=== PATIENT | female | born 1960 | race Hispanic/Latino ===

== ENCOUNTER 2017-02-16 20:49 | Emergency (ER) | payer OTHER ==
[2017-02-16] MEDS ORDERED: predniSONE 20 MG TAB ONE (21:07)
== END 2017-02-16 21:12 | disposition home or self-care (01) ==
LOC: SCSER 20:49
DX: L50.0 Allergic urticaria (principal); I10 Essential (primary) hypertension
CPT/HCPCS: 99283; J7506

== ENCOUNTER 2017-08-14 15:16 | Outpatient (CLI) | payer OTHER | END 2017-08-14 15:17 | disposition home or self-care (01) | LOC: BICMAMMO 15:16 | PROVIDERS: ATTEND Family Medicine | DX: Z12.31 Encounter for screening mammogram for malignant neoplasm of breast (principal); Z80.3 Family history of malignant neoplasm of breast; Z85.038 Personal history of other malignant neoplasm of large intestine | CPT/HCPCS: 77063; 77067 ==

== ENCOUNTER 2017-12-23 15:43 | Day surgery (SDC) | payer OTHER ==
[~2017-12-23 15:43] MED LIST: Dexamethasone 20 MG/5 ML VIAL ONE; Glycopyrrolate 0.2 MG/ML 5 ML SYRINGE ONE; Labetalol HCl 100 MG/20 ML VIAL ONE; Lidocaine 1% PF 5 ML VIAL ONE; PHENYLEPHRINE-NS 100 MCG/ML 10 ML SYRINGE ONE; PROPOFOL 200 MG/20 ML VIAL ONE; Succinylcholine Chloride 20 MG/ML 10 ml SYRINGE FS ONE; ePHEDrine/0.9% NaCl/PF SYRINGE 50 mg/10 ml ONE
[2017-12-23 18:00] LABS: #Eosinphils 0.1 thou/uL (0.0-0.7); #Lymphocytes 1.6 thou/uL (1.20-3.40); #Monocytes 0.7 thou/uL (0.11-0.59); #Neutrophils 7.1 thou/uL (1.40-6.50); %Basophils 0.2 % (0.0-1.0); %Eosinophils 0.7 % (0.0-10.0); %Monocytes 6.9 % (0.0-10.0); %Neutrophils 75.3 % (42.0-75.0); Hemoglobin 14.3 g/dL (12.0-16.0); Mean Corpuscular HGB CONC 32.4 g/dL (32.0-36.0); Mean Corpuscular Hemoglobin 28.7 pg (27.0-31.0); Mean Corpuscular Volume 88.6 fL (78.0-98.0); Mean Platelet Volume 6.3 fL (7.4-10.4); Platelet Count 356 thou/uL (130-400); RBC Distribution Width 11.9 % (11.5-14.5); Red Blood Cell (RBC) Count 4.97 mill/uL (4.20-5.40); White Blood Cell (WBC) Count 9.4 thou/uL (4.8-10.8)
[2017-12-23 18:32] LABS: ALT (SGPT) 48 U/L (8-55); AST (SGOT) 29 U/L (5-34); Albumin 4.3 g/dL (3.5-5.0); Alkaline Phosphatase 146 U/L (40-150); Anion Gap 18 mmol/L (10-20); BUN (Urea Nitrogen) 10 mg/dL (9.8-20.1); Bilirubin, Total 0.6 mg/dL (0.2-1.2); Calc. Creatinine Clearance 0 mL/min (70-130); Carbon Dioxide 25 mmol/L (22-29); Chloride 99 mmol/L (98-107); Estimated GFR-MDRD 72; Globulin 4.4 g/dL (2.4-3.5); Glucose 128 mg/dL (70-105); Potassium 4.5 mmol/L (3.5-5.1); Protein, Total 8.7 g/dL (6.0-8.3); Sodium 137 mmol/L (136-145)
[2017-12-23] MEDS ORDERED: Dexamethasone 20 MG/5 ML VIAL ONE (22:32)
[2017-12-23] MEDS ORDERED: SUGAMMADEX SODIUM 200 MG/2 ML VIAL ONE (22:53)
[2017-12-23] MEDS ORDERED: SUGAMMADEX SODIUM 500 MG/5 ML VIAL ONE (22:53)
[2017-12-23] MEDS ORDERED: Promethazine HCl 25 MG/ML VIAL IM PRN (23:38)
[2017-12-23] MEDS ORDERED: Promethazine HCl 25 MG/ML VIAL SLOW IVP PRN (23:38)
[2017-12-23] MEDS ORDERED: Ondansetron HCl/PF 4 MG/2 ML Vial IVP PRN (23:38)
[2017-12-23] MEDS ORDERED: Fentanyl 100 MCG/2 ML VIAL ONE (23:41)
--- NOTE | 2017-12-24 01:39 | HP ---
DATE OF CONSULTATION: 12/23/2017 HISTORY OF PRESENT ILLNESS: The patient is a 57-year-old female who was in her normal state of health until this evening. When she was eating, she noticed acute sticking of the food and inabi lity to swallow any liquids or saliva after that time. She reports she had a similar episode in the past and has been dilated by Dr. Perry. Reviewing hospital records, there is no evidence of previou s dilatation, although in 09/2011, she underwent an upper and lower endoscopy for history of colon ca ncer and dysphagia. She has had a history of a lymphocytic esophagitis and she had ringed esophagus, but no dilatation was performed. She denies any weight loss from dysphagia. She has had a few epis odes over the years which usually last for a few minutes and then the food bolus will eventually pass . PAST MEDICAL HISTORY: Significant for lupus, hypertension, hypercholesterolemia. MEDICATIONS: Include hydrochlorothiazide and another oral antihypertensive. ALLERGIES: Include CIPRO and SULFA. SOCIAL HISTORY: She does not smoke or drink. FAMILY HISTORY: Negative for GI or liver disease. REVIEW OF SYSTEMS: Ten systems were reviewed and were negative except for above. PHYSICAL EXAMINATION: GENERAL: Shows a well-developed, well-nourished female in no acute distress. HEENT: Shows poor dentition. NECK: Supple. CHEST: Clear. CARDIOVASCULAR: Regular rate and rhythm. ABDOMEN: Soft, nontender, without organomegaly or masses. Bowel sounds are present and normoactive. RECTAL: Deferred. EXTREMITIES: Normal. NEUROLOGIC: Nonfocal. LABORATORY: Shows a normal CBC. Chemistry panel was normal except for glucose 128, total protein 87 . ASSESSMENT: 1. Esophageal foreign body. 2. History of lymphocytic esophagitis. 3. History of ringed esophagus. RECOMMENDATIONS: EGD foreign body extraction with possible dilatation.
--- NOTE | 2017-12-24 01:54 | OP ---
PREOPERATIVE DIAGNOSIS: Foreign body in esophagus. POSTOPERATIVE DIAGNOSIS: Foreign body in esophagus. PROCEDURE PERFORMED: 1. Laryngoscopy. 2. Rigid esophagoscopy. SURGEON: Eduardo Connor M.D. ANESTHESIA: General endotracheal anesthetic. ESTIMATED BLOOD LOSS: None. COMPLICATIONS: None. FINDINGS: Stricture of the upper esophagus. INDICATIONS FOR SURGERY: The patient is a 57-year-old woman who has a foreign body lodged in her upp er to mid esophagus. Dr. Rey Lewis was attempting EGD to remove this and found that she had a signi ficant stricture and during this procedure, there was a little mucosal flap that was elevated, so he asked me to come in during the procedure to see if I could perform a rigid esophagoscopy to assist. DESCRIPTION OF OPERATION: The patient was already intubated and anesthetized. I placed the patient in an extended neck position and then removed her teeth and a rigid esophagoscope with telescope was passed posterior to the cricoid into the upper esophagus. There was a swelling and it really just co uld not get a very good visualization and given the fact that she had already had mucosal injury, we opted to not proceed further. I removed the rigid esophagoscope and then passed a laryngoscope to vi sualize the hypopharynx and the larynx. There was some postcricoid edema, but the epiglottis and voc al cords appeared normal with the tube that was in place with a little ecchymosis in the posterior ph arynx consistent with repeated instrumentation. Upon my completion, Dr. Lewis passed his flexible sco pe again and the appearance of the esophagus was the same as it was prior to my procedure with just a small tear and the stricture. At this point, we terminated the procedure.
--- NOTE | 2017-12-24 02:02 | OP ---
PREOPERATIVE DIAGNOSIS: Esophageal foreign body. PROCEDURE IN DETAIL: After informed consent was obtained, patient was placed in the left lateral dec ubitus position. Anesthesia was administered per the Anesthesia Department. Forward-viewing endosco pe was inserted into esophagus under direct visualization with ease and passed to the upper esophagus at approximately 20 cm. Because of some bleeding, the scope was removed and patient was intubated. The scope was reinserted and large mucosal tear was noted beginning at the cricopharyngeus extending approximately 3 to 4 cm distally down the esophagus. In the distance beyond this tear, an esophagea l foreign body could be seen but could not be reached with the endoscope. Because of the large tear had a mucosal tear had a lip on it and the endoscope could not be passed beyond this lip. It was fel t that at this time may be possibly a rigid esophagoscope would be more able to pass this area. I wi ll defer that procedure note to the ears, nose, and throat doctor. After he was finished and unsucce ssful, we inserted the endoscope again and no changes were noted to the mucosal tear and flap and the foreign body. Patient was set up as much as possible and water was irrigated through the foreign pasquale dy, so it was not complete obstruction and the water passed. Therefore, she should be able to tolera te her own secretions. It was felt at this time that the best approach would be to transfer her to a facility that had pediatric endoscopes to reach this area without compromising or further damaging t he mucosal tear. ASSESSMENT: 1. Esophageal foreign body. 2. Severe stricturing of the upper esophagus. 3. Unsuccessful of foreign body removal. RECOMMENDATIONS: Transfer to higher level of care with pediatric endoscopes.
== END 2017-12-24 01:01 | disposition short-term general hospital (02) ==
LOC: ERS 15:43 → SDC/OP 21:10
PROVIDERS: ATTEND Internal Medicine Gastroenterology
PROC: 0DJ08ZZ Inspection of Upper Intestinal Tract, Via Natural or Artificial Opening Endoscopic (ICD-10-PCS; principal; 2017-12-24)
PROC: 0DC58ZZ Extirpation of Matter from Esophagus, Via Natural or Artificial Opening Endoscopic (ICD-10-PCS; principal; 2017-12-24)
PROC: 0CJS8ZZ Inspection of Larynx, Via Natural or Artificial Opening Endoscopic (ICD-10-PCS; principal; 2017-12-24)
DX: T18.128A Food in esophagus causing other injury, initial encounter (principal); K22.2 Esophageal obstruction; S11.21XA Laceration without foreign body of pharynx and cervical esophagus, initial encounter; I10 Essential (primary) hypertension; E78.00 Pure hypercholesterolemia, unspecified; M32.9 Systemic lupus erythematosus, unspecified; Z98.890 Other specified postprocedural states; Z79.899 Other long term (current) drug therapy; Z88.1 Allergy status to other antibiotic agents; Z88.2 Allergy status to sulfonamides
CPT/HCPCS: 36415; 80053; 85025; 96361; 96374; 96375; 96376; J1100; J1610; J2001; J2704; J3010

== ENCOUNTER 2018-01-20 10:11 | Day surgery (SDC) | payer OTHER ==
[2018-01-17 14:03] VITALS: BMI 25.5
[2018-01-20] MEDS ORDERED: Lidocaine 1% PF 5 ML VIAL ONE (13:48)
[2018-01-20] MEDS ORDERED: PROPOFOL 200 MG/20 ML VIAL ONE (13:48)
--- NOTE | 2018-01-20 14:16 | OP ---
PREOPERATIVE DIAGNOSES: 1. History of eosinophilic esophagitis. 2. History of recent bolus obstruction in the esophagus requiring foreign body removal. ANESTHESIA: TIVA. PROCEDURE: EGD with dilatation over a guidewire from 10 to 12 mm. Second look did show laceration o f the proximal esophageal mucosa with no signs of perforation. PROCEDURE IN DETAIL: After the patient was informed of fall risks, benefits, possible complications of endoscopy including perforation, reactions to medication and aspiration, informed consent was obta ined. She was brought to endoscopy suite where she was sedated in gradual fashion. Once she was com fortable, a bite block was placed in the incisor orifice. The endoscope was advanced into the esopha pearl. In the proximal esophagus, the scope rimmed out and would not pass into the proximal esophageal stricture. We gently advanced a guidewire through the scope with no resistance and the wire was at 60 cm the stomach. We gently dilated the esophagus and with a 10 mm Savary dilator over the wi re, there was minimal resistance with 11 and 12 mm after this again with minimal resistance. T he scope then was reinserted and a large laceration to be seen in the proximal esophagus where the sc ope would not pass previously. There was no evidence of perforation. The remainder of the esophagus appeared okay without any effective dilatation. The stomach and duodenum were normal in the second and third portions. Retroflexed views in the stomach were normal. The wires positioned in the stoma ch was confirmed endoscopically. The scope was removed. The patient tolerated the procedure well wi th no complications. RECOMMENDATIONS: 1. Daily PPI. 2. Carafate p.r.n. for pain. 3. Liquid diet for 24 hours. 4. Followup in the office in 6 weeks. 5. If the patient has fever, worsening pain, or severe dysphagia, she has been instructed to call me immediately.
== END 2018-01-20 13:10 | disposition home or self-care (01) ==
LOC: SDC 10:11
PROVIDERS: ATTEND Internal Medicine Gastroenterology
PROC: 0D758ZZ Dilation of Esophagus, Via Natural or Artificial Opening Endoscopic (ICD-10-PCS; principal; 2018-01-20)
DX: K22.2 Esophageal obstruction (principal); Z79.899 Other long term (current) drug therapy; Z88.1 Allergy status to other antibiotic agents; Z88.2 Allergy status to sulfonamides
CPT/HCPCS: J2001; J2704

== ENCOUNTER 2020-05-05 15:14 | Outpatient (CLI) | payer OTHER | END 2020-05-05 15:15 | disposition home or self-care (01) | LOC: BICRAD 15:14 | PROVIDERS: ATTEND Family Medicine | DX: M54.2 Cervicalgia (principal); R07.9 Chest pain, unspecified | CPT/HCPCS: 71046; 72040 ==

== ENCOUNTER 2021-06-23 14:28 | Inpatient (IN) | payer BC ==
[~2021-06-23 14:28] MED LIST changes: -Dexamethasone 20 MG/5 ML VIAL ONE; -Glycopyrrolate 0.2 MG/ML 5 ML SYRINGE ONE; +Iopamidol-370 76% 500 ML 1 ML ONE; -Labetalol HCl 100 MG/20 ML VIAL ONE; -Lidocaine 1% PF 5 ML VIAL ONE; -PHENYLEPHRINE-NS 100 MCG/ML 10 ML SYRINGE ONE; -PROPOFOL 200 MG/20 ML VIAL ONE; -Succinylcholine Chloride 20 MG/ML 10 ml SYRINGE FS ONE; -ePHEDrine/0.9% NaCl/PF SYRINGE 50 mg/10 ml ONE
[2021-06-23 16:21] LABS: #Lymphocytes 1.1 thou/uL (1.20-3.40); #Monocytes 0.9 thou/uL (0.11-0.59); #Neutrophils 9.1 thou/uL (1.40-6.50); %Basophils 0.1 % (0.0-1.0); %Eosinophils 0.1 % (0.0-10.0); %Lymphocytes 9.7 % (21.0-51.0); %Monocytes 8.1 % (0.0-10.0); %Neutrophils 81.9 % (42.0-75.0); Hemoglobin 10.7 g/dL (12.0-16.0); Mean Corpuscular HGB CONC 31.9 g/dL (32.0-36.0); Mean Corpuscular Volume 91.1 fL (78.0-98.0); Mean Platelet Volume 7.1 fL (7.4-10.4); Platelet Count 241 thou/uL (130-400); Red Blood Cell (RBC) Count 3.67 mill/uL (4.20-5.40); White Blood Cell (WBC) Count 11.1 thou/uL (4.8-10.8)
[2021-06-23 16:27] LABS: ALT (SGPT) 14 U/L (8-55); AST (SGOT) 19 U/L (5-34); Albumin 3.5 g/dL (3.4-4.8); Alkaline Phosphatase 107 U/L (40-110); Anion Gap 14 mmol/L (10-20); BUN (Urea Nitrogen) 13 mg/dL (9.8-20.1); Calc. Creatinine Clearance 0 mL/min (70-130); Calcium 8.6 mg/dL (7.8-10.44); Carbon Dioxide 24 mmol/L (23-31); Chloride 98 mmol/L (98-107); Globulin 4.2 g/dL (2.4-3.5); Glucose 104 mg/dL (80-115); Potassium 3.4 mmol/L (3.5-5.1); Protein, Total 7.7 g/dL (5.8-8.1); Sodium 133 mmol/L (136-145)
[2021-06-23] MEDS ORDERED: Vancomycin 1 GM/200 ML BAG ONE (18:40)
[2021-06-23] MEDS ORDERED: Cefepime 2 GM VIAL ONE (18:40)
[2021-06-23 20:47] LABS: Bacteria/HPF None Seen HPF (None Seen); Bilirubin Negative (Negative); Blood, Urine Trace (Negative); Clarity Clear (Clear); Glucose, Urine (Dipstick) Normal (Negative); Ketone, Urine Negative (Negative); Leukocyte 75 Leu/uL (Negative); Nitrite Negative (Negative); Protein, Urine (Dipstick) 10 mg/dL (Neg-Trace); RBC/HPF 0-3 HPF (0-3); Specific Gravity, Urine 1.035 (1.002-1.036); Squamous Epithelial 0-3 HPF (0-3); Urobilinogen Normal mg/dL (Less than 2); WBC/HPF 0-3 HPF (0-3); pH, Urine 5.5 (5.0-9.0)
[2021-06-23] MEDS ORDERED: Acetaminophen 325 MG TAB PO PRN (20:52)
[2021-06-23] MEDS ORDERED: Ondansetron PF 4 MG/2 ML Vial IVP PRN (20:52)
[2021-06-23] MEDS ORDERED: cefTRIAXone\\ROCEPHIN 1 GM in Sodium Chloride 0.9% 100 ML IVPB SCH (21:00)
[2021-06-23] MEDS ORDERED: guaiFENesin/DM ER PO PRN (21:05)
[2021-06-23] MEDS ORDERED: Potassium Bicarbonate/Cit Ac 20 MEQ TAB PO SCH (21:15)
[2021-06-23 22:35] LABS: SARS-CoV-2 NAA Rapid Test Not Detected (NotDetected)
[2021-06-24 00:48] VITALS: BMI 26.9
[2021-06-24 06:23] LABS: #Lymphocytes 0.7 thou/uL (1.20-3.40); #Monocytes 0.6 thou/uL (0.11-0.59); #Neutrophils 6.3 thou/uL (1.40-6.50); %Basophils 0.1 % (0.0-1.0); %Eosinophils 0.5 % (0.0-10.0); %Lymphocytes 8.8 % (21.0-51.0); %Monocytes 7.9 % (0.0-10.0); %Neutrophils 82.7 % (42.0-75.0); Hemoglobin 9.6 g/dL (12.0-16.0); Mean Corpuscular HGB CONC 32.1 g/dL (32.0-36.0); Mean Corpuscular Hemoglobin 29.2 pg (27.0-31.0); Mean Corpuscular Volume 91.1 fL (78.0-98.0); Mean Platelet Volume 7.2 fL (7.4-10.4); Platelet Count 222 thou/uL (130-400); RBC Distribution Width 12.1 % (11.5-14.5); Red Blood Cell (RBC) Count 3.26 mill/uL (4.20-5.40); White Blood Cell (WBC) Count 7.6 thou/uL (4.8-10.8)
[2021-06-24] MEDS: Azithromycin 500 MG in Sodium Chloride 0.9% 250 ML 250 ML IVPB SCH (06:34)
[2021-06-24 06:43] LABS: Anion Gap 10 mmol/L (10-20); BUN (Urea Nitrogen) 9 mg/dL (9.8-20.1); Calc. Creatinine Clearance 75 mL/min (70-130); Calcium 8.2 mg/dL (7.8-10.44); Carbon Dioxide 26 mmol/L (23-31); Chloride 102 mmol/L (98-107); Glucose 119 mg/dL (80-115); Magnesium 1.8 mg/dL (1.6-2.6); Potassium 3.2 mmol/L (3.5-5.1); Sodium 135 mmol/L (136-145)
[2021-06-24] MEDS: Enoxaparin Sodium 40 MG/0.4 ML SYRINGE SC SCH ×2 (08:31→08:36)
[2021-06-24] MEDS ORDERED: Cepastat Lozenges 1 LOZ PO PRN (10:34)
[2021-06-24] MEDS ORDERED: Sodium Chloride 0.9% 1,000 ML IV SCH (10:45)
[2021-06-24] MEDS: methylPREDNISolone Sod Succ 40 MG VIAL IVP SCH ×2 (14:52→21:42)
[2021-06-24] MEDS: Benzonatate 100 MG CAP PO SCH ×2 (14:52→20:59)
[2021-06-24 15:28] LABS: Legionella Urinary Ag Negative (Negative); Strep pneumo Urine Ag NEGATIVE (NEGATIVE)
[2021-06-24 16:28] LABS: SARS-CoV-2 IgG Spike Ab Interp Reactive (NonReactive); SARS-CoV-2 IgG Spike Conc/Indx Greater than 50000.0 AU/mL (0.00-50.0)
[2021-06-24] MEDS ORDERED: cefTRIAXone Sodium 1,000 MG in Syringe 0 ML IVPB SCH (17:45)
[2021-06-24] MEDS: cefTRIAXone\\ROCEPHIN 1 GM in Sodium Chloride 0.9% 100 ML IVPB SCH (20:55)
[2021-06-24] MEDS: guaiFENesin/DM ER PO SCH (20:59)
[2021-06-25] MEDS: methylPREDNISolone Sod Succ 40 MG VIAL IVP SCH (05:24)
[2021-06-25] MEDS: Benzonatate 100 MG CAP PO SCH ×3 (05:24→21:32)
[2021-06-25] MEDS: Azithromycin 500 MG in Sodium Chloride 0.9% 250 ML 250 ML IVPB SCH (06:33)
[2021-06-25 07:25] LABS: Anion Gap 13 mmol/L (10-20); BUN (Urea Nitrogen) 7 mg/dL (9.8-20.1); Calc. Creatinine Clearance 90 mL/min (70-130); Calcium 8.9 mg/dL (7.8-10.44); Carbon Dioxide 24 mmol/L (23-31); Chloride 106 mmol/L (98-107); Glucose 151 mg/dL (80-115); Sodium 139 mmol/L (136-145)
[2021-06-25 07:29] LABS: Hemoglobin 10.2 g/dL (12.0-16.0); Mean Corpuscular Hemoglobin 29.4 pg (27.0-31.0); Mean Corpuscular Volume 91.9 fL (78.0-98.0); Mean Platelet Volume 7.4 fL (7.4-10.4); Platelet Count 224 thou/uL (130-400); RBC Distribution Width 12.2 % (11.5-14.5); Red Blood Cell (RBC) Count 3.47 mill/uL (4.20-5.40); White Blood Cell (WBC) Count 3.8 thou/uL (4.8-10.8)
[2021-06-25 08:12] LABS: Band 43 % (5-11); Lymphocytes 8 % (21-51); MDiff Complete? YES; Monocytes 2 % (0-10); Neutrophil 47 % (42-75); Platelet Morphology Comment Appears Adequate; Polychromasia SLIGHT = 2-3 cells (100X) (0-2/hpf); Reflex for Review?? YES
[2021-06-25] MEDS: Enoxaparin Sodium 40 MG/0.4 ML SYRINGE SC SCH (08:32)
[2021-06-25] MEDS: guaiFENesin/DM ER PO SCH ×2 (08:32→21:34)
[2021-06-25] MEDS ORDERED: Lorazepam 1 MG TAB PO PRN (09:48)
[2021-06-25] MEDS: Atorvastatin Calcium 10 MG TAB PO SCH (21:32)
[2021-06-25] MEDS: Montelukast Sodium 10 mg Tablet PO SCH (21:32)
[2021-06-25] MEDS: Fluticasone Propionate Nasal Spray 16 gm Bottle NASAL SCH (21:32)
[2021-06-25] MEDS: hydrOXYzine 25 MG TAB PO SCH (21:32)
[2021-06-25] MEDS: cefTRIAXone\\ROCEPHIN 1 GM in Sodium Chloride 0.9% 100 ML IVPB SCH (21:34)
[2021-06-26] MEDS: Azithromycin 500 MG in Sodium Chloride 0.9% 250 ML 250 ML IVPB SCH (06:12)
[2021-06-26 06:29] LABS: #Lymphocytes 0.7 thou/uL (1.20-3.40); #Monocytes 0.4 thou/uL (0.11-0.59); #Neutrophils 4.9 thou/uL (1.40-6.50); %Basophils 0.1 % (0.0-1.0); %Eosinophils 0.1 % (0.0-10.0); %Lymphocytes 11.6 % (21.0-51.0); %Monocytes 6.7 % (0.0-10.0); %Neutrophils 81.5 % (42.0-75.0); Hemoglobin 9.1 g/dL (12.0-16.0); Mean Corpuscular HGB CONC 31.8 g/dL (32.0-36.0); Mean Corpuscular Hemoglobin 29.3 pg (27.0-31.0); Mean Corpuscular Volume 92.2 fL (78.0-98.0); Mean Platelet Volume 7.3 fL (7.4-10.4); Platelet Count 277 thou/uL (130-400); RBC Distribution Width 12.4 % (11.5-14.5); Red Blood Cell (RBC) Count 3.11 mill/uL (4.20-5.40)
[2021-06-26 06:52] LABS: Anion Gap 11 mmol/L (10-20); BUN (Urea Nitrogen) 10 mg/dL (9.8-20.1); Calc. Creatinine Clearance 83 mL/min (70-130); Calcium 8.8 mg/dL (7.8-10.44); Carbon Dioxide 27 mmol/L (23-31); Chloride 106 mmol/L (98-107); Glucose 114 mg/dL (80-115); Potassium 3.6 mmol/L (3.5-5.1); Sodium 140 mmol/L (136-145)
[2021-06-26] MEDS: Loratadine 10 MG TAB PO SCH (08:04)
[2021-06-26] MEDS: Benzonatate 100 MG CAP PO SCH ×2 (08:04→15:01)
[2021-06-26] MEDS: Enoxaparin Sodium 40 MG/0.4 ML SYRINGE SC SCH (08:06)
[2021-06-26] MEDS: guaiFENesin/DM ER PO SCH ×2 (08:06→20:28)
[2021-06-26] MEDS: Cefdinir 300 MG CAP PO SCH (20:27)
[2021-06-26] MEDS: Montelukast Sodium 10 mg Tablet PO SCH (20:27)
[2021-06-26] MEDS: Atorvastatin Calcium 10 MG TAB PO SCH (20:27)
[2021-06-26] MEDS: hydrOXYzine 25 MG TAB PO SCH (20:27)
[2021-06-26] MEDS: Fluticasone Propionate Nasal Spray 16 gm Bottle NASAL SCH (20:34)
[2021-06-26] MEDS: Guaifenesin DM 100-10/5 ML UDCUP PO PRN (20:49)
[2021-06-27] MEDS: Cefdinir 300 MG CAP PO SCH (08:18)
[2021-06-27] MEDS: Fluticasone Propionate Nasal Spray 16 gm Bottle NASAL SCH (08:18)
[2021-06-27] MEDS: Loratadine 10 MG TAB PO SCH (08:19)
[2021-06-27] MEDS: guaiFENesin/DM ER PO SCH (08:19)
[2021-06-27] MEDS: Enoxaparin Sodium 40 MG/0.4 ML SYRINGE SC SCH (08:19)
[2021-06-27] MEDS: Guaifenesin DM 100-10/5 ML UDCUP PO PRN (08:24)
[2021-06-27] MEDS ORDERED: Azithromycin 250 MG TAB PO SCH (09:00)
[2021-06-27] MEDS ORDERED: Cefdinir 300 MG CAP PO SCH (09:00)
[2021-06-27] MEDS ORDERED: Loperamide HCl 2 MG CAP PO SCH (10:45)
[2021-06-27 11:54] VITALS: BP 147/79; TEMP 98.3
== END 2021-06-27 11:50 | disposition home or self-care (01) | DRG 194 ==
LOC: ERS 14:28 → T4-B 19:50 → OBSVTOIN 06-25 09:47 → T4-B 06-26 15:43
PROVIDERS: ADMIT Internal Medicine; ATTEND Internal Medicine
DX: J13 Pneumonia due to Streptococcus pneumoniae (principal); E87.1 Hypo-osmolality and hyponatremia; E87.2 Acidosis; Z20.822 Contact with and (suspected) exposure to COVID-19; M32.9 Systemic lupus erythematosus, unspecified; I10 Essential (primary) hypertension; E78.5 Hyperlipidemia, unspecified; E87.6 Hypokalemia; I73.00 Raynaud's syndrome without gangrene; D64.9 Anemia, unspecified; Z88.1 Allergy status to other antibiotic agents; Z88.2 Allergy status to sulfonamides; Z85.038 Personal history of other malignant neoplasm of large intestine; Z79.899 Other long term (current) drug therapy; Z90.89 Acquired absence of other organs; Z98.51 Tubal ligation status; Z98.890 Other specified postprocedural states; Z82.49 Family history of ischemic heart disease and other diseases of the circulatory system
CPT/HCPCS: 36415; 71045; 71046; 71260; 80048; 80053; 81003; 81015; 83605; 83735; 84484; 85025; 85060; 86769; 87040; 87070; 87149; 87205; 87449; 87899; 93005; 94640; 96365; 96366; 96367; 96375; 96376; G0378; J0456; J0692; J0696; J1650; J2405; J2920; J3370; J3490; J7050; J7620; Q9967

== ENCOUNTER 2021-07-25 08:44 | Outpatient (CLI) | payer BC | END 2021-07-25 08:45 | disposition home or self-care (01) | LOC: RAD 08:44 | PROVIDERS: ATTEND Internal Medicine Critical Care Medicine | DX: R06.00 Dyspnea, unspecified (principal) | CPT/HCPCS: 71046 ==

== ENCOUNTER 2021-12-19 11:57 | Outpatient (CLI) | payer BC | END 2021-12-19 11:58 | disposition home or self-care (01) | LOC: BICMAMMO 11:57 | PROVIDERS: ATTEND Family Medicine | DX: Z12.31 Encounter for screening mammogram for malignant neoplasm of breast (principal) | CPT/HCPCS: 77063; 77067 ==

== ENCOUNTER 2022-06-22 10:56 | Outpatient (CLI) | payer BC | END 2022-06-22 10:57 | disposition home or self-care (01) | LOC: RAD 10:56 | PROVIDERS: ATTEND Internal Medicine Critical Care Medicine | DX: J16.8 Pneumonia due to other specified infectious organisms (principal) | CPT/HCPCS: 71046 ==

== ENCOUNTER 2022-06-22 20:51 | Emergency (ER) | payer BC ==
[2022-06-22] MEDS ORDERED: Dexamethasone 10 MG/ML VIAL ONE (21:47)
[2022-06-22] MEDS ORDERED: hydrOXYzine 25 MG TAB ONE (21:47)
== END 2022-06-22 23:07 | disposition home or self-care (01) ==
LOC: ERS 20:51
DX: L20.9 Atopic dermatitis, unspecified (principal); I10 Essential (primary) hypertension
CPT/HCPCS: 96372; 99282; J1100

== ENCOUNTER 2023-04-05 13:55 | Outpatient (CLI) | payer BC | END 2023-04-05 13:56 | disposition home or self-care (01) | LOC: ULT 13:55 | PROVIDERS: ATTEND Family Medicine | DX: N39.0 Urinary tract infection, site not specified (principal) | CPT/HCPCS: 76770 ==

== ENCOUNTER 2023-04-12 17:55 | Inpatient (IN) | payer BC ==
[2023-04-12 18:20] LABS: #Eosinphils 0.1 thou/uL (0.0-0.7); #Monocytes 0.5 thou/uL (0.11-0.59); #Neutrophils 5.6 thou/uL (1.40-6.50); %Basophils 0.4 % (0.0-1.0); %Eosinophils 1.4 % (0.0-10.0); %Lymphocytes 20.9 % (21.0-51.0); %Monocytes 6.2 % (0.0-10.0); %Neutrophils 70.7 % (42.0-75.0); Hematocrit 33.8 % (36.0-47.0); Hemoglobin 10.8 g/dL (12.0-16.0); Mean Corpuscular Hemoglobin 27.4 pg (27.0-31.0); Mean Corpuscular Volume 85.8 fl (78.0-98.0); Mean Platelet Volume 9.5 fL (7.4-10.4); Platelet Count 281 10x3/uL (130-400); RBC Distribution Width 14.1 % (11.5-14.5); Red Blood Cell (RBC) Count 3.94 mill/uL (4.20-5.40); White Blood Cell (WBC) Count 7.9 10x3/uL (4.8-10.8)
[2023-04-12 18:43] LABS: ALT (SGPT) 16 U/L (8-55); AST (SGOT) 21 U/L (5-34); Albumin 3.7 g/dL (3.4-4.8); Alkaline Phosphatase 124 U/L (40-110); Anion Gap 12 mmol/L (10-20); BUN (Urea Nitrogen) 10 mg/dL (9.8-20.1); Bilirubin, Total 0.3 mg/dL (0.2-1.2); Calc. Creatinine Clearance 0 mL/min (70-130); Carbon Dioxide 25 mmol/L (23-31); Chloride 105 mmol/L (98-107); Estimated GFR 76; Globulin 4.1 g/dL (2.4-3.5); Glucose 106 mg/dL (80-115); Lipase 245 U/L (8-78); Magnesium 1.9 mg/dL (1.6-2.6); Potassium 3.5 mmol/L (3.5-5.1); Protein, Total 7.8 g/dL (5.8-8.1); Sodium 138 mmol/L (136-145)
[2023-04-12] MEDS ORDERED: Ketorolac Tromethamine 30 MG (1 mL) VIAL ONE (18:51)
[2023-04-12 19:37] LABS: Bacteria/HPF 4+ HPF (None Seen); Bilirubin 1+ (Negative); Blood, Urine 2+ (Negative); CAUTI Indications for Culture Dysuria,urgency,freq; Clarity Extra Turbid (Clear); Glucose, Urine (Dipstick) Normal (Negative); Ketone, Urine Negative (Negative); Leukocyte 500 Leu/uL (Negative); Nitrite 2+ (Negative); Protein, Urine (Dipstick) 100 mg/dL (Neg-Trace); RBC/HPF 21-50 HPF (0-3); Specific Gravity, Urine 1.018 (1.002-1.036); Squamous Epithelial 0-3 HPF (0-3); WBC/HPF Greater than 50 HPF (0-3)
[2023-04-12 19:38] LABS: Urine Culture Reflex Yes Yes
[2023-04-12] MEDS ORDERED: Acetaminophen 325 MG TAB PO PRN (21:06)
[2023-04-12] MEDS: Meropenem 1 GM in Sodium Chloride 0.9% 100 ML IVPB SCH (22:47)
[2023-04-12] MEDS: Sodium Chloride 0.9% 1,000 ML IV SCH (23:01)
[2023-04-12] MEDS: Oxybutynin ER 5 MG TAB PO SCH (23:04)
[2023-04-12 23:07] VITALS: BMI 26.4
[2023-04-13] MEDS: Meropenem 1 GM in Sodium Chloride 0.9% 100 ML IVPB SCH (04:26)
[2023-04-13] MEDS: Morphine 4 MG/ML VIAL SLOW IVP SCH (04:27)
[2023-04-13] MEDS: Loratadine 10 MG TAB PO SCH (09:22)
[2023-04-13] MEDS: Oxybutynin ER 5 MG TAB PO SCH (09:22)
[2023-04-13] MEDS: Enoxaparin 40 MG (0.4 mL) SYRINGE SC SCH (09:23)
[2023-04-13] MEDS: Ketorolac Tromethamine 30 MG (1 mL) VIAL IVP PRN (11:23)
[2023-04-13] MEDS: Phenazopyridine HCl 100 MG TAB PO SCH (12:27)
[2023-04-13] MEDS ORDERED: Iopamidol 370 76% 100 ML VIAL ONE (14:14)
[2023-04-13 20:01] LABS: #Basophils 0.1 thou/uL (0.0-0.2); #Neutrophils 9.1 thou/uL (1.40-6.50); %Basophils 0.5 % (0.0-1.0); %Eosinophils 0.3 % (0.0-10.0); %Lymphocytes 14.2 % (21.0-51.0); %Monocytes 8.5 % (0.0-10.0); Hematocrit 36.4 % (36.0-47.0); Mean Corpuscular Hemoglobin 31.2 pg (27.0-31.0); Mean Corpuscular Volume 94.5 fl (78.0-98.0); Mean Platelet Volume 11.6 fL (7.4-10.4); Platelet Count 425 10x3/uL (130-400); RBC Distribution Width 13.1 % (11.5-14.5); Red Blood Cell (RBC) Count 3.85 mill/uL (4.20-5.40)
[2023-04-13 20:28] LABS: Anion Gap 12 mmol/L (10-20); BUN (Urea Nitrogen) 10 mg/dL (9.8-20.1); Calc. Creatinine Clearance 93 mL/min (70-130); Calcium 8.8 mg/dL (7.8-10.44); Carbon Dioxide 25 mmol/L (23-31); Chloride 103 mmol/L (98-107); Estimated GFR 101; Glucose 172 mg/dL (80-115); Lipase 21 U/L (8-78); Potassium 4.4 mmol/L (3.5-5.1); Sodium 136 mmol/L (136-145)
[2023-04-13] MEDS: Metoprolol Tartrate 50 MG TAB PO SCH (20:32)
[2023-04-13] MEDS: Montelukast Sodium 10 mg Tablet PO SCH (20:32)
[2023-04-13] MEDS: Atorvastatin Calcium 10 MG TAB PO SCH (20:32)
[2023-04-13] MEDS: hydrOXYzine 25 MG TAB PO SCH (20:32)
[2023-04-14 05:32] LABS: #Eosinphils 0.2 thou/uL (0.0-0.7); #Monocytes 0.5 thou/uL (0.11-0.59); #Neutrophils 4.7 thou/uL (1.40-6.50); %Basophils 0.5 % (0.0-1.0); %Eosinophils 2.4 % (0.0-10.0); %Lymphocytes 19.1 % (21.0-51.0); %Monocytes 6.8 % (0.0-10.0); %Neutrophils 70.9 % (42.0-75.0); Hematocrit 34.4 % (36.0-47.0); Hemoglobin 10.7 g/dL (12.0-16.0); Mean Corpuscular HGB CONC 31.1 g/dL (32.0-36.0); Mean Corpuscular Hemoglobin 27.1 pg (27.0-31.0); Mean Platelet Volume 9.5 fL (7.4-10.4); RBC Distribution Width 14.3 % (11.5-14.5); Red Blood Cell (RBC) Count 3.95 mill/uL (4.20-5.40); White Blood Cell (WBC) Count 6.7 10x3/uL (4.8-10.8)
[2023-04-14 05:50] LABS: Anion Gap 11 mmol/L (10-20); BUN (Urea Nitrogen) 8 mg/dL (9.8-20.1); Calc. Creatinine Clearance 76 mL/min (70-130); Calcium 8.9 mg/dL (7.8-10.44); Carbon Dioxide 24 mmol/L (23-31); Chloride 105 mmol/L (98-107); Estimated GFR 91; Glucose 90 mg/dL (80-115); Mean Corpuscular Volume 87.1 fl (78.0-98.0); Platelet Count 284 10x3/uL (130-400); Potassium 3.3 mmol/L (3.5-5.1); Sodium 137 mmol/L (136-145)
[2023-04-14] MEDS: Citalopram 20 MG TAB PO SCH (09:12)
[2023-04-14] MEDS: Ondansetron PF 4 MG/2 ML Vial IVP PRN (11:58)
[2023-04-14] MEDS: Potassium Chloride 20 MEQ TAB PO SCH (20:59)
[2023-04-15 07:17] LABS: Anion Gap 8 mmol/L (10-20); BUN (Urea Nitrogen) 7 mg/dL (9.8-20.1); Calc. Creatinine Clearance 77 mL/min (70-130); Carbon Dioxide 29 mmol/L (23-31); Chloride 105 mmol/L (98-107); Estimated GFR 92; Glucose 105 mg/dL (80-115); Potassium 3.8 mmol/L (3.5-5.1); Sodium 138 mmol/L (136-145)
[2023-04-16] MEDS ORDERED: Sodium Chloride 0.9% 500 ML ONE (10:48)
[2023-04-16] MEDS ORDERED: Sodium Bicarbonate 2.5 MEQ/5 ML SDV ONE (10:48)
[2023-04-16] MEDS ORDERED: Lidocaine 1% PF 5 ML VIAL ONE (10:48)
[2023-04-16] MEDS ORDERED: Heparin 1,000 UNITS/ML VIAL ONE (10:48)
[2023-04-16 17:19] VITALS: BP 133/75; TEMP 97.9
== END 2023-04-16 16:48 | disposition home or self-care (01) | DRG 690 ==
LOC: ERS 17:55 → MSONC 21:06
PROVIDERS: ADMIT Internal Medicine; ATTEND Family Medicine
PROC: 02HV33Z Insertion of Infusion Device into Superior Vena Cava, Percutaneous Approach (ICD-10-PCS; principal; 2023-04-16)
PROC: B548ZZA Ultrasonography of Superior Vena Cava, Guidance (ICD-10-PCS; 2023-04-16)
PROC: B5181ZA Fluoroscopy of Superior Vena Cava using Low Osmolar Contrast, Guidance (ICD-10-PCS; 2023-04-16)
DX: N30.00 Acute cystitis without hematuria (principal); I10 Essential (primary) hypertension; E78.5 Hyperlipidemia, unspecified; M32.9 Systemic lupus erythematosus, unspecified; E87.6 Hypokalemia; M35.9 Systemic involvement of connective tissue, unspecified; I73.00 Raynaud's syndrome without gangrene; Z98.890 Other specified postprocedural states; Z90.49 Acquired absence of other specified parts of digestive tract; Z85.038 Personal history of other malignant neoplasm of large intestine; Z88.2 Allergy status to sulfonamides; Z88.8 Allergy status to other drugs, medicaments and biological substances; Z88.1 Allergy status to other antibiotic agents; Z79.899 Other long term (current) drug therapy; Z79.51 Long term (current) use of inhaled steroids; Z90.710 Acquired absence of both cervix and uterus; Z98.51 Tubal ligation status; Z82.49 Family history of ischemic heart disease and other diseases of the circulatory system
CPT/HCPCS: 36415; 36569; 74177; 80048; 80053; 81001; 83605; 83690; 83735; 85025; 87040; 87077; 87086; 87186; 96361; 96365; 96375; J1644; J1650; J1885; J2185; J2270; J2405; J3490; J7030; J7050; Q9967

== ENCOUNTER 2024-01-01 12:04 | Outpatient (CLI) | payer BC | END 2024-01-01 12:05 | disposition home or self-care (01) | LOC: BICMAMMO 12:04 | PROVIDERS: ATTEND Internal Medicine | DX: Z12.31 Encounter for screening mammogram for malignant neoplasm of breast (principal); Z85.038 Personal history of other malignant neoplasm of large intestine | CPT/HCPCS: 77063; 77067 ==

== ENCOUNTER 2025-01-07 12:11 | Outpatient (CLI) | payer BC | END 2025-01-07 12:12 | disposition home or self-care (01) | LOC: BICMAMMO 12:11 | PROVIDERS: ATTEND Physician Assistant | DX: Z12.31 Encounter for screening mammogram for malignant neoplasm of breast (principal); Z80.3 Family history of malignant neoplasm of breast; Z85.038 Personal history of other malignant neoplasm of large intestine | CPT/HCPCS: 77063; 77067 ==